=== PATIENT | male | born 1950 | race Asian ===

== ENCOUNTER 2017-10-24 12:11 | Day surgery (SDC) | payer MEDICARE, BC ==
[~2017-10-24] VITALS: Ht 167.6 cm; Wt 51.0 kg
[2017-10-24 12:58] VITALS: Ht 167.6 cm; Wt 51.0 kg
--- NOTE | 2017-10-24 14:59 | OPPN ---
Date/Time of Note Date/Time of Note DATE: 10/24/17 TIME: 14:56 Proc Note GI Procedure Date 10/24/17 Indication: other (Reflux symptoms) Pre-procedure Diagnosis Reflux symptoms Post-procedure Diagnosis Impression: Distal erosive esophagitis. Proximal displacement of the e.g. junction. Rule out Valente's esophagus. Biopsies obtained Moderate gastritis. Rule out H. pylori infection. Biopsies obtained Otherwise normal EGD Plan: Omeprazole 40 mg daily Review pathology Follow-up as previously scheduled . Procedure Performed: Endoscopy (With biopsies) Surgeon BRYSON TAYLOR MD See signature line [employer]orer none Anesthesia Type: MAC Anesthesiologist: JE MORALES DO Tourniquet Time none EBL none Transfusion required none Biopsy 1: Gastric body and antrum Biopsy 2: Distal esophagus Grafts/Implants none Tubes/Drains none Complication(s) none Procedure Description After informed consent, with the patient/relatives understanding the procedure, its indications, potential risks and complications, including but not limited to : allergic reaction, bleeding, perforation or infection, and after all pertinent questions were answered to the patients satisfaction, the patient/ relatives signed witnessed informed consent. Following this, premedication was administered slowly IV push under careful cardiovascular and respiratory monitoring with pulse oximetry, automatic blood pressure, and front desk monitor. Once the sedative effect was achieved the patient was place in the left lateral decubitus, the panendoscope was introduced and advanced under visual control. Careful examination of the upper gastrointestinal tract, both on insertion as well as withdrawal of the instrument disclosing the following findings: ESOPHAGUS: the mucosa of the entire esophagus was carefully examined and showed the following findings: There is erythema edema and superficial erosion of the mucosa at the esophagogastric junction. There is also proximal displacement of the e.g. junction. Biopsies were obtained to rule out Valente's esophagus. Otherwise the mucosa appears within normal limits. There is no evidence of varices, neoplasm, or stricture. No Hiatal Hernia identified. STOMACH: Upon entrance to the stomach air was insufflated, the gastric guzman distended normally. The mucosa of the fundus, body and antrum of the stomach was carefully examined both head-on and on retroflexion, and showed the following findings: There is moderate erythema and edema of the mucosa of the body and antrum the stomach. Biopsies were obtained to rule out H. pylori infection. Otherwise the mucosa appears within normal limits with no abnormalities. There is no evidence of ulcers or neoplasm. PYLORUS: The pylorus was carefully examined and showed the following findings: the pylorus appears patent and within normal limits, with no evidence of gastric outlet obstruction. DUODENUM: The duodenal mucosa was carefully examined in the duodenal bulb as well as the second portion of the duodenum and showed the following findings: the mucosa appears unremarkable with no evidence of duodenitis, ulcer or neoplasm. Copies To: CC: BRYSON TAYLOR MD, MORDO MD Oct 24, 2017 14:59
[2017-10-24 15:00] VITALS: BP 127/77; PULSE 65; RESP 18
--- NOTE | 2017-10-24 15:45 | OPPN ---
Date/Time of Note Date/Time of Note DATE: 10/24/17 TIME: 15:43 Proc Note GI Procedure Date 10/24/17 Indication: other (Colorectal cancer screening) Pre-procedure Diagnosis Colorectal cancer screening Post-procedure Diagnosis Impression: 4 mm sessile polyp descending colon. Ablated Moderate diverticulosis mostly right colon. Moderate-sized internal hemorrhoids. Otherwise normal colonoscopy to cecum. Plan: Follow up as scheduled] High fiber diet Annual hemoccult stool testing [Review pathology] [Surveillance colonoscopy in 5 years] . Procedure Performed: Colonoscopy (With polyp ablation) Surgeon BRYSON TAYLOR MD See signature line [employer]ker[employer] Office Manager none Anesthesia Type: MAC Anesthesiologist: JE MORALES DO Tourniquet Time none EBL none Transfusion required none Biopsy 1: None Grafts/Implants none Tubes/Drains none Complication(s) none Procedure Description After informed consent, with the patient/relatives understanding the procedure, its indications and potential risks and complications, including but not limited to: Allergic reaction, bleeding, perforation, infection, and after all pertinent questions were answered to the patient's satisfaction, the patient/ relatives signed the witnessed informed consent. Following this, premedication was administered slowly IV push under careful cardiovascular and respiratory monitoring with pulse OXIMETRY, automatic blood pressure, and threat monitoring analyst. Once the sedative effect was achieved, the patient was placed in the left lateral decubitus position, digital rectal examination was performed. The colonoscope was then introduced and advanced under visual control throughout all segments of the colon including: the rectum, sigmoid, descending colon, splenic flexure, transverse colon, hepatic flexure, ascending colon and finally reaching the cecum which was clearly identified by transillumination, finger indentation and the ileocecal valve. Careful examination of the mucosa of the lower gastrointestinal tract both on insertion as well as withdrawal of the instrument disclosed the following findings: PREPARATION QUALITY: [Adequate], RECTAL EXAM: The anorectal area was visualized examined and digital rectal examination performed with the following findings: No evidence of perirectal disease, no masses. COLONIC MUCOSA: The mucosa of all segments of the colon was carefully examined and showed the following findings: 4 mm sessile polyp descending colon. Ablated. Moderate diverticulosis mostly right side of the colon. Moderate-sized internal hemorrhoids. Otherwise the examined mucosa appears within normal limits. There is no evidence of inflammatory changes, other polyps or neoplasms, vascular malformation, or any other abnormality. The instrument was then withdrawn, the patient tolerated the procedure well and was transferred out of the Endoscopy Suite awake and in good condition to continue recovery under observation. Copies To: CC: BRYSON TAYLOR MD, MORDO MD Oct 24, 2017 15:45
[2017-10-24] MEDS ORDERED: MIDAZOLAM 1 MG/ML 2 ML INJ ONE ×2 (15:51)
[2017-10-24] MEDS ORDERED: FENTAnyl 50 MCG/ML VIAL ONE (15:52)
[2017-10-24 16:15] VITALS: BP 96/64; PULSE 59; RESP 18
== END 2017-10-24 17:02 | disposition home or self-care (01) ==
LOC: GIL 12:11
PROVIDERS: ATTEND Internal Medicine Gastroenterology
DX: R19.4 Change in bowel habit (principal); D12.4 Benign neoplasm of descending colon; K57.30 Diverticulosis of large intestine without perforation or abscess without bleeding; K64.8 Other hemorrhoids
CPT/HCPCS: 88305; J2250; J3010